=== PATIENT | female | born 1970 | race Caucasian/White ===

== ENCOUNTER 2024-11-15 15:36 | Outpatient (CLI) | payer MEDICAID, SELFPAY ==
--- NOTE | 2024-11-15 16:05 | DI.RAD_ITS ---
Exam(s) XR KNEE RT 2V AP,LAT EXAM: XR KNEE RT 2V AP,LAT CLINICAL HISTORY: right knee pain. TECHNIQUE: 2D digital imaging was performed. COMPARISON: There are no prior images on this patient in our PACS. FINDINGS: Two views-AP supine and cross-table lateral. There are intramedullary rods in the femur and tibia. There is an intact appearing femoral component of the knee prosthesis. The tibial component has been removed and there is radiodense material evid ent in the tibial metaphysis and proximal diaphysis. There are no fractures. However, the appearanc e of the fibular head is suspicious for osteomyelitis IMPRESSION: As above. Comparison to priors would be helpful. DATA REPOSITORY: RADIATION DOSE DELIVERED:
== END 2024-11-15 15:37 | disposition home or self-care (01) ==
LOC: DIORS 15:37
PROVIDERS: PCP Family Medicine; Visit Provider Physician Assistant
DX: T84.53XA Infection and inflammatory reaction due to internal right knee prosthesis, initial encounter; Z96.651 Presence of right artificial knee joint
CPT/HCPCS: 73560